=== PATIENT | female | born 1970 | race Two or more races ===

== ENCOUNTER 2024-03-08 09:40 | Outpatient (RCR) | payer MEDICAID, SELFPAY ==
--- NOTE | 2024-03-08 12:15 | CTCCONSULT_ITS ---
[facility] [address] [place], [place] [address] Consultation Note Date: 03/08/2024 MR#: [id number] Name: JACOB SOLIS : 1970 Dx: C19 Malignant neoplasm of rectosigmoid junction Attending physician. [facility]. Referring physician. Swapnil Huertas MD Reason for consultation. Patient with stage IIa colorectal CA status post neoadjuvant FOLFOX now ref erred for chemoradiation prior to anticipated surgery. History of Present Illness: Patient is a 53-year-old lady who was passing bright red blood for the pa st few years and colonoscopy performed on 08/27/2023 found grade 2 of 3 adenocarcinoma in the rectosigm oid region. There was no loss of expression of mismatch repair. Tumor was felt to be 10 cm from broderick verge proximal to 15.2 cm. MRI of the pelvis August 2023 showed the irregular thickening in the rect osigmoid area and the proximal rectum, 5.2 cm tumor circumferential 1.6 cm thick wall and through mus cularis but unable to visual extension into the mesorectum. This was both above and below the perito [place] reflection. CEA was elevated at 23.7. PET scan 11/04/2023 showed intense activity in the cecum. Repeat colonoscopy and biopsy 01/19/2024 had polyp removed from ileocecal valve and another removed 10 cm from anal verge both negative for dysplasia or invasive malignancy. Patient received 9 cycles of FOLFOX beginning 10/05/2023. Now referred for radiation with concurrent 5-FU in anticipation of e ventual low anterior resection. Patient reportedly to be scheduled for surgery with Dr. lA. Past Medical History: Iron deficiency obesity Meds. A scar COVID your Colace lidocaine prilocaine topical cream olanzapine Zofran allergies none k nown Social History: 3 pregnancies 3 births age of first 20 denies family history of colon cance r Review of Systems: Had experienced some lower GI bleeding improved since treatment along with pelvic pain Physical Exam: General: Adequate nourished appearing lady no acute distress HEENT: Atraumatic normocephalic extraocular muscle intact no oral lesion no cervical or supraclavicul ar apathy CV: Chest clear to auscultation heart regular rate and rhythm ABD: Soft no organomegaly or tenderness EXT: No signs of clubbing or edema Assessment:1. Patient with likely stage IIa colorectal CA 5.2 cm extending from 10 cm anal verge to 1 5 cm above. 2. Completed neoadjuvant [address] cycles of [address] under Dr[address] Huertas's direction 3 weeks ago. Tolerated gloria mo well. 3. Now referred for 5-FU and pelvic radiation, approximate 5 to 6 weeks of 5040 cGy. 4. Will ask for the modern VMAT treatment planning system for maximum sparing of normal tissues whil e we treat the colorectal and adjacent aissatou sites. 5. Side effects explained. Patient told to avoid . 6. Afterward patient scheduled to have surgery with Dr. Al general surgeon 7. Thank you much allow me to evaluate and manage this patient. Cc: Swapnil Huertas MD [facility] Electronically signed by: Golden Silva MD, DABR 03/08/2024 12:12 PM
--- NOTE | 2024-03-08 12:16 | CTCTXPLN_ITS ---
[facility] [address] [place], [place] [address] Physician Clinical Treatment Planning Note Date of Service: 03/08/2024 Name: JACOB IRMA UsB.: 1970 The patient has agreed to proceed with Radiation therapy. Tests and supporting medical records were interpreted to assist in defining the tumor location and extent of disease. Further imaging will be necessary to contour and delineate the volume to which the XRT will be provided. A. Treatment Intent: Curative B. Modality: 10 MV C. Requested Technique: VMAT D. Treatment Site: Pelvis E. Critical structures to be contoured on plan: Vac-Jorge F. In order to accomplish this plan, I am ordering/Prescribing the followin. Simulations (s) will be performed to accomplish a reproducible treatment position, to determine op timal treatment portals/beam arrangements, to design beam modifying devices and verify treatment port als on patient prior to the commencement of Radiation Therapy. Pelvis 2. Devices; for immobilization and beam shaping: Vac-Jorge 3. CT Guidance for placement of XRT clark Scan area: Pelvis 4. Portal images Frequency: 5. Invivo transit dose measurement once per week on all VMAT patients. 6. Special Physics Consult Requested for: 7. Other requests: Procedure someone getting chemo and radiation G. Dose Objectives: Curative Electronically signed by: Golden Silva M.D. 03/08/2024 12:13 PM
--- NOTE | 2024-03-08 12:18 | CTCTXPLNST_ITS ---
Radiation Oncology Treatment Planning Sheet Name: JACOB SOLIS MR#: [id number] : 1970 Dx: C19 Malignant neoplasm of rectosigmoid junction Date of Service: 03/08/2024 Account #: ?? Pt Treatment Intent: curative palliative other: Stage: Procedure CPT # Ordered Spec. Procedure 06971 1 Bond Complex (set-up) 46993 pelvis 1 Bond Simple 36280 IMRT Plan 73402 1 MLC Devices VMAT 47875 3 Bond 3 D 07548 TRTMT dev Complex 25898 vaklok 1 TRTMT dev simple 57472 Basic Bryn 24179 9 Special Dosimetry 10794 Spec Physics 15249 Port Films 24305 SRS Cranial/1FX 89403 SBR 5 FX or Less /ex: 5 = 5 fx 21551 IMRT Simple 49705 5040 28 IMRT Complex 69165 IGRT 54551 25 Rad del com 6-10 91759 Rad del com 11- 73146 Cont Med Physics 03569 5 Treatment Planning 87394 1 Rad del com 20 mev 27975 Rad del inter 6-10 35340 Rad del inter 11 55338 Rad del simple 6-10 69282 Rad del simple 11-19 64455 Special Port Plan 16064 TRTMT dev inter 48994 Isodose Complex 54860 Isodose simple 30210 Resp Motion Mgmt Simulation 18529 Placement of Fiducial Markers 40706 Electronically Signed By: Golden Silva MD, DABR 03/08/2024 12:15 PM
== END 2024-03-21 23:59 | disposition home or self-care (01) ==
LOC: SCTC 09:40
PROVIDERS: PCP Physician Assistant Medical; Referring Provider Internal Medicine Hematology & Oncology; Visit Provider Radiology Therapeutic Radiology
DX: C19 Malignant neoplasm of rectosigmoid junction (principal)
CPT/HCPCS: 99213; G0463

== ENCOUNTER 2024-04-21 10:55 | Outpatient (RCR) | payer MEDICAID, SELFPAY ==
--- NOTE | 2024-03-29 14:30 | CTCSNOTE_ITS ---
[facility] [address] [place], [place] [address] CT Simulation Note Date: 03/29/2024 MR# [id number] Name: JACOB SOLIS : 1970 (A) DIAGNOSIS: C19 Malignant neoplasm of rectosigmoid junction (B) Patient was placed in supine position and used vaklok for immobilization purposes. (C) CT slices included pelvis (D) VMAT Will be needed for maximum sparing of adjacent normal critical structures. (E) Patient tolerated the simulation well and left the room in good condition. Electronically signed by: Golden Silva MD, MINIR 03/29/2024 2:27 PM
== END 2024-04-21 23:59 | disposition home or self-care (01) ==
LOC: SCTC 10:55
PROVIDERS: PCP Physician Assistant Medical; Referring Provider Physician Assistant Medical; Visit Provider Radiology Therapeutic Radiology
DX: Z51.0 Encounter for antineoplastic radiation therapy (principal); C19 Malignant neoplasm of rectosigmoid junction
CPT/HCPCS: 77014; 77290; 77300; 77301; 77334; 77338; 77385

== ENCOUNTER 2024-05-18 15:03 | Outpatient (RCR) | payer MEDICAID, SELFPAY ==
--- NOTE | 2024-04-24 16:06 | CTCTRTNOTE_ITS ---
[facility] [address], [place] [address] Weekly Management Date: 04/24/2024 ?? Name: JACOB IRMA Cedillo.: 1970 A. Patient is currently at 1080 cGy. B. Patient is tolerating treatment well. Getting infusional 5-FU. C. Resume radiation therapy. Electronically signed by: Golden Silva M.D. 04/24/2024 4:04 PM
== END 2024-05-19 23:59 | disposition home or self-care (01) ==
LOC: SCTC 15:03
PROVIDERS: PCP Physician Assistant Medical; Referring Provider Physician Assistant Medical; Visit Provider Radiology Therapeutic Radiology
DX: Z51.0 Encounter for antineoplastic radiation therapy (principal); C19 Malignant neoplasm of rectosigmoid junction
CPT/HCPCS: 77336; 77385

== ENCOUNTER 2024-06-08 10:27 | Outpatient (RCR) | payer MEDICAID, SELFPAY ==
--- NOTE | 2024-05-22 15:43 | CTCTRTNOTE_ITS ---
[facility] [address] [place], [place] [address] Weekly Management Date: 05/22/2024 ?? Name: JACOB SOLIS : 1970 A. Patient is currently at 4320 cGy. No significant pelvic symptoms. B. Patient is having some discomfort at port site where Meyers needle is attached to the port.. No inflammation or signs of infection noted however. Told her to bring this up with Dr. Huertas's team. Completes XRT this week. C. Resume radiation therapy. Electronically signed by: Golden Silva M.D. 05/22/2024 3:41 PM
== END 2024-06-19 23:59 | disposition home or self-care (01) ==
LOC: SCTC 10:27
PROVIDERS: PCP Physician Assistant Medical; Referring Provider Physician Assistant Medical; Visit Provider Radiology Therapeutic Radiology
DX: Z51.0 Encounter for antineoplastic radiation therapy (principal); C19 Malignant neoplasm of rectosigmoid junction
CPT/HCPCS: 77336; 77385; 99212; G0463

== ENCOUNTER → 2025-02-06 | Outpatient (CLI) | payer MEDICAID, SELFPAY ==
--- NOTE | 2025-02-06 13:15 | XR_ITS ---
Examination: Screening digital mammography, bilateral Computer aided detection 3-D breast Tomosynthesis, bilateral Date and time of exam: February 06, 2025, 1311 hours, compared to mammograms dating to 06/26/2017 Indication: Screening Technique: Nonmagnified MLO, CC views of the breasts to been obtained, reconstructed from 3-D Tomosynthesis images. R2 computer aided detection program utilized for evaluation of suspicious masses and/or abnormal calcifications. 3-D Tomosynthesis images obtained. Findings: Scattered areas of fibroglandular density. Benign calcifications. No interval suspicious masses Port-A-Cath reservoir left axilla degrades image quality of the left MLO view Impression: BI-RADS Category 0: Incomplete, need additional imaging evaluation Limited study as above, recommend baseline bilateral breast sonography follow-up
== END | disposition home or self-care (01) ==
PROVIDERS: Referring Provider Physician Assistant Medical; Visit Provider Physician Assistant Medical
DX: Z12.31 Encounter for screening mammogram for malignant neoplasm of breast (principal); R92.8 Other abnormal and inconclusive findings on diagnostic imaging of breast
CPT/HCPCS: 77063; 77067